=== PATIENT | male | born 1970 | race Caucasian/White ===

== ENCOUNTER 2023-09-20 10:30 | Emergency (ER) | payer MEDICAID ==
[~2023-09-20] VITALS: Ht 162.6 cm; Wt 70.0 kg
[2023-09-20 11:09] VITALS: BP 93/58; PULSE 64; RESP 16; TEMP 98.2; O2SAT 99
[2023-09-20] MEDS ORDERED: NAPR500T7 PO (11:42)
[2023-09-20] MEDS ORDERED: CYCL10TA21 PO (11:42)
== END 2023-09-20 12:59 | disposition home or self-care (01) ==
LOC: ER 10:30
DX: S80.02XA Contusion of left knee, initial encounter (principal); X58.XXXA Exposure to other specified factors, initial encounter; Y93.89 Activity, other specified; Y92.89 Other specified places as the place of occurrence of the external cause; Y99.8 Other external cause status
CPT/HCPCS: 99283

== ENCOUNTER 2023-09-28 11:03 | Emergency (ER) | payer MEDICAID ==
[~2023-09-28] VITALS: Ht 172.7 cm; Wt 70.0 kg
[~2023-09-28 11:03] MED LIST: CYCL10TA21 PO; NAPR500T7 PO
[2023-09-28 11:18] VITALS: TEMP 98.9; O2SAT 99
[2023-09-28] MEDS ORDERED: KETOROLAC 30MG/ML VIAL IM ONE (17:00)
[2023-09-28] MEDS ORDERED: BACLOFEN 10MG TABLET PO ONE (17:00)
[2023-09-28] MEDS ORDERED: LIDO700A15 TP (18:18)
[2023-09-28] MEDS ORDERED: NAPR-1176 MT (18:18)
[2023-09-28 18:46] VITALS: BP 116/84; PULSE 64; RESP 16
== END 2023-09-28 18:48 | disposition home or self-care (01) ==
LOC: ER 12:12
DX: M25.512 Pain in left shoulder (principal); M25.561 Pain in right knee
CPT/HCPCS: 99284; 73030; 73562; 96372; J1885

== ENCOUNTER 2024-02-10 14:35 | Emergency (ER) | payer MEDICAID ==
[~2024-02-10] VITALS: Ht 185.4 cm; Wt 72.0 kg
[~2024-02-10 14:35] MED LIST changes: +LIDO700A15 TP; +NAPR-1176 MT
[2024-02-10 15:00] VITALS: O2SAT 99
[2024-02-10] MEDS: LIDOCAINE HCL 1% 20ML VIAL (Pyxis) INJ INFIL ONE (17:01)
[2024-02-10] MEDS ORDERED: DOXY100C5 MT (17:26)
[2024-02-10] MEDS ORDERED: CEPH500C2 MT (17:26)
[2024-02-10] MEDS ORDERED: NAPR500T7 PO (17:43)
[2024-02-10 18:39] VITALS: BP 118/70; PULSE 70; RESP 15; TEMP 98.3
== END 2024-02-10 18:42 | disposition home or self-care (01) ==
LOC: ER 14:35
DX: L02.411 Cutaneous abscess of right axilla (principal); L02.415 Cutaneous abscess of right lower limb; L02.214 Cutaneous abscess of groin
CPT/HCPCS: 10061; 99284; J3490; Z7610 ×2

== ENCOUNTER 2024-02-14 14:40 | Emergency (ER) | payer MEDICAID, OTHER ==
[~2024-02-14] VITALS: Ht 172.7 cm; Wt 73.0 kg
[~2024-02-14 14:40] MED LIST changes: +CEPH500C2 MT; +DOXY100C5 MT
[2024-02-14 15:14] VITALS: O2SAT 99
[2024-02-14 16:33] VITALS: BP 125/80; PULSE 99; RESP 16; TEMP 98.6
== END 2024-02-14 16:35 | disposition home or self-care (01) ==
LOC: ER 15:46
DX: Z48.01 Encounter for change or removal of surgical wound dressing (principal)
CPT/HCPCS: 99281

== ENCOUNTER 2024-03-07 08:35 | Emergency (ER) | payer OTHER ==
[~2024-03-07] VITALS: Ht 172.7 cm; Wt 73.0 kg
[2024-03-07 08:40] VITALS: O2SAT 97
[2024-03-07] MEDS: MECLIZINE 25MG TABLET PO ONE (09:00)
[2024-03-07] MEDS: ACETAMINOPHEN 325MG TABLET PO ONE (09:00)
[2024-03-07 09:11] LABS: BASOPHILS % 0.4 % (0.0-2.0); EOSINOPHILS % 0.9 % (0.0-5.0); HEMATOCRIT. 43.5 % (42.0-52.0); HEMOGLOBIN. 14.6 g/dL (14.0-18.0); LYMPHOCYTES % 25.5 % (20.0-50.0); MEAN CORPUSCULAR HEMOGLOBIN 29.7 pg (28.0-32.0); MEAN CORPUSCULAR HGB CONC 33.5 g/dL (31.0-37.0); MEAN CORPUSCULAR VOLUME 88.4 fL (80.0-94.0); MEAN PLATELET VOLUME 7.7 fl (7.4-10.4); MONOCYTES % 6.3 % (2.0-8.0); NEUTROPHILS % 66.9 % (40.0-76.0); PLATELET 216 x1000/uL (130-400); RED BLOOD CELL COUNT 4.92 mill/uL (4.7-6.1); RED CELL DISTRIBUTION WIDTH 13.5 % (11.6-14.6); WHITE BLOOD COUNT 4.9 x1000/uL (4.5-11.0)
[2024-03-07 09:12] LABS: CLARITY URINE CLEAR (CLEAR); COLOR URINE YELLOW (YELLOW); GLUCOSE URINE NEGATIVE (NEGATIVE); KETONES URINE NEGATIVE (NEGATIVE); LEUKOCYTE ESTERASE URINE NEGATIVE (NEGATIVE); NITRITE URINE NEGATIVE (NEGATIVE); OCCULT BLOOD URINE NEGATIVE (NEGATIVE); PH URINE 5.5 (4.5-8.0); PROTEIN URINE NEGATIVE (NEGATIVE); SPECIFIC GRAVITY URINE 1.036 (1.005-1.030)
[2024-03-07 09:21] LABS: CHLORIDE 108 mEq/L (98-107); POTASSIUM 3.7 mEq/L (3.5-5.1); SODIUM 143 mEq/L (136-145)
[2024-03-07 09:22] LABS: CARBON DIOXIDE 29 mEq/L (21-32)
[2024-03-07 09:23] LABS: CALCIUM 9.6 mg/dL (8.7-10.4)
[2024-03-07 09:27] LABS: GLUCOSE 117 mg/dL (70-105); UREA NITROGEN BLOOD 27 mg/dL (9-23)
[2024-03-07 09:41] LABS: TROPONIN I HIGH SENSITIVITY < 4 ng/L (3.0-53)
[2024-03-07] MEDS: ACETAMINOPHEN 325MG TABLET ONE (11:24)
[2024-03-07] MEDS: FLUORESCEIN SODIUM 1MG/STRIP RIGHTEYE ONE (11:38)
[2024-03-07] MEDS ORDERED: MECL-299 MT (12:32)
[2024-03-07 13:06] VITALS: BP 122/78; PULSE 76; RESP 20; TEMP 98.4
== END 2024-03-07 13:08 | disposition home or self-care (01) ==
LOC: ER 08:35
DX: S09.90XA Unspecified injury of head, initial encounter (principal); R42 Dizziness and giddiness; H53.8 Other visual disturbances; W18.39XA Other fall on same level, initial encounter; Y93.89 Activity, other specified; Y92.89 Other specified places as the place of occurrence of the external cause; Y99.8 Other external cause status
CPT/HCPCS: 99284; 70450; 76512; 80048; 81003; 85025; 84484; 36415; 93005; J8597

== ENCOUNTER 2024-03-20 09:56 | Emergency (ER) | payer OTHER ==
[~2024-03-20] VITALS: Ht 172.7 cm; Wt 76.0 kg
[~2024-03-20 09:56] MED LIST changes: +MECL-299 MT
[2024-03-20 10:13] VITALS: O2SAT 99
[2024-03-20] MEDS: MECLIZINE 25MG TABLET PO ONE (10:36)
[2024-03-20] MEDS ORDERED: MECL-299 MT (11:16)
[2024-03-20] MEDS ORDERED: ASPI1TAB8 PO (11:17)
[2024-03-20 11:25] VITALS: BP 128/78; PULSE 68; RESP 16; TEMP 98.3
== END 2024-03-20 11:26 | disposition home or self-care (01) ==
LOC: ER 10:34
DX: R51.9 Headache, unspecified (principal); H81.10 Benign paroxysmal vertigo, unspecified ear
CPT/HCPCS: 99284; 70450; J8597

== ENCOUNTER → 2024-05-02 | Emergency (ER) | payer OTHER ==
[~2024-05-02] VITALS: Ht 177.8 cm; Wt 85.0 kg
[~2024-05-02] MED LIST changes: +ASPI1TAB8 PO
[2024-05-02 09:24] VITALS: O2SAT 100
[2024-05-02] MEDS: ACETAMINOPHEN 325MG TABLET PO ONE (10:53)
[2024-05-02] MEDS: KETOROLAC 30MG/ML VIAL IM ONE (10:53)
[2024-05-02 11:27] VITALS: BP 107/59; PULSE 64; RESP 20; TEMP 98.3
== END ==
LOC: ER 09:23
DX: M79.602 Pain in left arm (principal); Z79.899 Other long term (current) drug therapy
CPT/HCPCS: 99284; 73110; 73130; 96372; J1885

== ENCOUNTER 2025-02-21 22:44 | Emergency (ER) | payer OTHER ==
[~2025-02-21] VITALS: Ht 170.2 cm; Wt 78.0 kg
[~2025-02-21 22:44] MED LIST changes: +LIDO-53 TP; -LIDO700A15 TP; +NAPR-1486 PO; -NAPR500T7 PO
[2025-02-21] MEDS ORDERED: IPRATROPIUM BROMIDE (0.02%) 0.5MG/2.5ML NEB HHN STA (22:51)
[2025-02-21] MEDS ORDERED: ALBUTEROL (0.083%) 2.5MG/3ML NEB HHN SCH (23:00)
[2025-02-21 23:09] VITALS: O2SAT 97
[2025-02-22 00:26] LABS: BASOPHILS % 0.2 % (0.0-2.0); EOSINOPHILS % 0.6 % (0.0-5.0); HEMATOCRIT. 37.6 % (42.0-52.0); HEMOGLOBIN. 12.9 g/dL (14.0-18.0); LYMPHOCYTES % 12.2 % (20.0-50.0); MEAN CORPUSCULAR HEMOGLOBIN 29.7 pg (28.0-32.0); MEAN CORPUSCULAR HGB CONC 34.3 g/dL (31.0-37.0); MEAN CORPUSCULAR VOLUME 86.4 fL (80.0-94.0); MEAN PLATELET VOLUME 7.5 fl (7.4-10.4); MONOCYTES % 8.7 % (2.0-8.0); NEUTROPHILS % 78.3 % (40.0-76.0); PLATELET 158 x1000/uL (130-400); RED BLOOD CELL COUNT 4.36 mill/uL (4.7-6.1); RED CELL DISTRIBUTION WIDTH 12.8 % (11.6-14.6); WHITE BLOOD COUNT 7.7 x1000/uL (4.5-11.0)
[2025-02-22 00:34] LABS: CHLORIDE 102 mEq/L (98-107); POTASSIUM 3.8 mEq/L (3.5-5.1); SODIUM 139 mEq/L (136-145)
[2025-02-22 00:35] LABS: CARBON DIOXIDE 28 mEq/L (21-32); PARTIAL THROMBOPLASTIN TIME 29.8 sec (23.4-31.0); PROTHROMBIN TIME 10.9 sec (9.6-11.0)
[2025-02-22 00:36] LABS: CALCIUM 8.8 mg/dL (8.7-10.4)
[2025-02-22 00:41] LABS: ETHANOL BLOOD < 10 mg/dL (<10); GLUCOSE 90 mg/dL (70-105); UREA NITROGEN BLOOD 17 mg/dL (9-23)
[2025-02-22 00:45] LABS: TROPONIN I HIGH SENSITIVITY < 4 ng/L (3.0-53)
[2025-02-22] MEDS: IBUPROFEN 600MG TABLET PO SCH (00:57)
[2025-02-22] MEDS ORDERED: IBUP-2029 MT (01:21)
[2025-02-22] MEDS ORDERED: ALBU90AE INH (01:21)
[2025-02-22 02:20] VITALS: BP 123/74; PULSE 102; RESP 18; TEMP 37.7; O2SAT 96
== END 2025-02-22 02:36 | disposition home or self-care (01) ==
LOC: ER 22:44
DX: U07.1 COVID-19 (principal); R05.9 Cough, unspecified; R07.9 Chest pain, unspecified; R79.89 Other specified abnormal findings of blood chemistry; Z79.1 Long term (current) use of non-steroidal anti-inflammatories (NSAID); Z79.82 Long term (current) use of aspirin; Z79.899 Other long term (current) drug therapy
CPT/HCPCS: 36415; 71045; 93005; 99285; 87426; 80048; 80320; 83880; 83605; 85025; 85610; 85730; 87040; 84484; Z7610; G0480

== ENCOUNTER 2025-03-27 09:38 | Emergency (ER) | payer OTHER ==
[~2025-03-27] VITALS: Ht 172.7 cm; Wt 73.0 kg
[~2025-03-27 09:38] MED LIST changes: +ALBU90AE INH; +IBUP-2029 MT
[2025-03-27 09:44] VITALS: O2SAT 99
[2025-03-27] MEDS ORDERED: NAPR-1176 MT (13:10)
[2025-03-27] MEDS ORDERED: DOXY-461 MT (13:10)
[2025-03-27] MEDS ORDERED: MAXOS LEFTEYE (13:10)
[2025-03-27 13:55] VITALS: BP 132/75; PULSE 58; RESP 18; TEMP 36.8; O2SAT 100
== END 2025-03-27 13:56 | disposition home or self-care (01) ==
LOC: ER 10:21
DX: H00.016 Hordeolum externum left eye, unspecified eyelid (principal); H10.9 Unspecified conjunctivitis; Z79.1 Long term (current) use of non-steroidal anti-inflammatories (NSAID); Z79.82 Long term (current) use of aspirin
CPT/HCPCS: 10060; 99284